=== PATIENT | female | born 1935 | race Asian ===

== ENCOUNTER 2016-12-27 06:50 | Inpatient (IN) | payer MEDICARE, MEDICAID ==
[~2016-12-27] VITALS: Ht 160 cm; Wt 62.1 kg
[2016-12-27] VITALS (63 sets, daily range): BP systolic 58–156; BP diastolic 25–111
[~2016-12-27 06:50] MED LIST: ACET-868 PO; ACYC800T PO; ALPR-322 PO; ATEN25TA PO; ESTR1.25 PO; GABA-534 PO; HYDR-3326 PO; MAG30ORA PO; MAGN400O6 PO; MELA3TAB PO; MUPI22OI7 TP; PANT40TA4 PO; PRED50TA PO; RIVA10TA PO; SIMV20TA6 PO; TRAZ-144 PO
[2016-12-27] MEDS ORDERED: EPINEPHRINE (1:10,000) SYRINGE 1 MG/10 ML DISP.SYRIN IVP ONE (07:10)
[2016-12-27] MEDS ORDERED: CALCIUM CHLORIDE 1,000 MG/10 ML DISP.SYRIN IV ONE (07:10)
[2016-12-27] MEDS ORDERED: DEXTROSE 50%-WATER 50 ML DISP.SYRIN IV ONE (07:10)
[2016-12-27] MEDS ORDERED: SODIUM BICARBONATE SYR 50 MEQ/50 ML DISP.SYRIN IV ONE ×2 (07:10→15:00)
[2016-12-27] MEDS ORDERED: AMIO200T2 PO (07:43)
[2016-12-27] MEDS ORDERED: ROPI0.5T PO (07:43)
[2016-12-27] MEDS ORDERED: DULO60CA45 PO (07:43)
[2016-12-27] MEDS ORDERED: FURO20TA4 PO (07:43)
[2016-12-27] MEDS ORDERED: CHOL100044 PO (07:43)
[2016-12-27] MEDS ORDERED: TRIA1CAP6 PO (07:43)
[2016-12-27 07:47] LABS: BASOPHILS # (AUTO) 0.1 /CMM (0.0-0.2); BASOPHILS % (AUTO) 0.3 % (0.0-2.0); DIFF TOTAL % 100 %; HEMATOCRIT 32 % (33-45); HEMOGLOBIN 9.9 g/dL (11.5-14.8); LYMPHOCYTES % (AUTO) 3.1 % (20.0-44.0); MEAN CORPUSCULAR HEMOGLOBIN 30 PG (26.0-33.0); MEAN CORPUSCULAR HGB CONC 31 g/dl (31.0-36.0); MEAN CORPUSCULAR VOLUME 95 fL (82-100); MONOCYTES # (AUTO) 0.6 /CMM (0.1-1.30); MONOCYTES % (AUTO) 1.8 % (2.0-12.0); NEUTROPHILS # (AUTO) 30.1 /CMM (1.8-8.9); NEUTROPHILS % (AUTO) 94.8 % (43.0-81.0); PLATELET COUNT (AUTO) 100 /CMM (150-450); RED BLOOD CELL COUNT(AUTO) 3.32 MIL/uL (4.0-5.2)
[2016-12-27 07:51] LABS: WHITE BLOOD COUNT (AUTO) 31.8 K/uL (4.3-11.0)
[2016-12-27] MEDS ORDERED: IV NS 0.9% 1,000 ML IV ONE ×2 (08:00→08:30)
[2016-12-27] MEDS ORDERED: IV NS 0.9% 1,000 ML BAG IV ONE (08:00)
[2016-12-27 08:01] LABS: ALBUMIN 1.7 g/dL (3.4-5.0); BILIRUBIN,DIRECT 0.8 mg/dL (0.0-0.2); BILIRUBIN,TOTAL 1.3 mg/dL (0.2-1.0); CALCIUM, SERUM 9.1 mg/dL (8.5-10.1); CREATININE 3.2 mg/dL (0.6-1.3); INDIRECT BILIRUBIN 0.5 mg/dL (0.0-1.1); POTASSIUM 5.9 mmol/L (3.5-5.1); TOTAL PROTEIN, SERUM 4.3 g/dL (6.4-8.2)
[2016-12-27 08:03] LABS: TROPONIN I 0.281 ng/mL (0.00-0.056)
[2016-12-27 08:08] LABS: INR 3.18 (0.87-1.13); PROTHROMBIN TIME 34.8 SECS (9.5-12.7)
[2016-12-27] MEDS ORDERED: IV NS 0.9% 1,000 ML ONE (08:16)
[2016-12-27] MEDS ORDERED: IV SET PRIMARY PUMP SET 1 EA INFUS.SET MC ONE ×2 (08:16→10:20)
[2016-12-27 08:22] LABS: KETONES,URINE NEGATIVE (NEGATIVE); LEUKOCYTE ESTERASE ,URINE NEGATIVE (NEGATIVE); PH,URINE 5.5 (5.0-8.0)
[2016-12-27 08:24] LABS: ABG BASE EXCESS -23.8 mmol/L; ABG HCO3 6.9 mmol/L; ABG PCO2 31.4 mmHg (35.0-45.0); ABG PH 6.957 (7.350-7.450); ABG PO2 153.3 mmHg (75.0-100.0); ABG TOTAL HEMOGLOBIN 9.9 G/dL (12.0-16.0); ALLEN TEST Pass; AaDO2 528.3 mmHg
[2016-12-27 08:28] LABS: ADD UA MICROSCOPIC YES
[2016-12-27] MEDS ORDERED: NOREPINEPHRINE 8 MG in IV D5W 500 ML IV PRN (08:30)
[2016-12-27] MEDS ORDERED: DEXTROSE 50%-WATER 50 ML DISP.SYRIN ONE (09:25)
[2016-12-27] MEDS ORDERED: DEXTROSE 50%-WATER 50 ML DISP.SYRIN IVP ONE (09:30)
[2016-12-27] MEDS ORDERED: IV D5/ 0.9% NACL 1,000 ML IV ONE (09:30)
[2016-12-27] MEDS: NOREPINEPHRINE 8 MG in IV D5W 500 ML IV PRN ×2 (09:35→14:05)
[2016-12-27 09:42] LABS: BAND % (MANUAL) 9 % (0.0-5.0); LYMPHOCYTES % (MANUAL) 3 % (16-48)
[2016-12-27 09:43] LABS: ANISOCYTOSIS 1+; HYPOCHROMASIA 1+; PLATELET ESTIMATE DECREASED
[2016-12-27] MEDS ORDERED: Sodium Bicarbonate 150 MEQ in IV D5W 1,000 ML IV PRN (10:00)
[2016-12-27 10:11] LABS: WBC,URINE NONE SEEN /HPF (0-3)
[2016-12-27 10:12] LABS: ADD URINE CULTURE NO
[2016-12-27 10:22] LABS: CREATININE, URINE 111.4 MG/DL (30.0-125.0); URINE TOTAL PROTEIN 78.3 mg/dL (0-11.9)
[2016-12-27] MEDS: ALBUMIN 25% 25 GM in PREMIX 1 EA IV SCH ×3 (10:27→21:52)
[2016-12-27] MEDS: HYDROCORTISONE SOD SUCCINATE 100 MG/2 ML VIAL IV SCH ×3 (10:32→17:40)
[2016-12-27 10:42] LABS: CREATINE KINASE MB 9.1 ng/mL (0-3.6)
[2016-12-27 10:48] LABS: ABG BASE EXCESS -23.3 mmol/L; ABG HCO3 7.3 mmol/L; ABG PCO2 32.4 mmHg (35.0-45.0); ABG PH 6.969 (7.350-7.450); ABG PO2 99.4 mmHg (75.0-100.0); ABG TOTAL HEMOGLOBIN 10.8 G/dL (12.0-16.0); ALLEN TEST Pass; AaDO2 400.9 mmHg; O2Hb 90.7 % (94.0-97.0)
[2016-12-27] MEDS ORDERED: ALBUMIN 25% 25 GM in PREMIX 1 EA IV SCH (11:00)
[2016-12-27] MEDS ORDERED: Z GUARD REMEDY 2 OZ OINT TP PRN (12:00)
[2016-12-27] MEDS ORDERED: MAG HYDROX/AL HYDROX/SIMETH 30 ML UDC PO PRN (12:00)
[2016-12-27] MEDS ORDERED: ACETAMINOPHEN 325 MG TABLET PO PRN (12:00)
[2016-12-27] MEDS ORDERED: ZOLPIDEM TARTRATE 5 MG TABLET PO PRN (12:00)
[2016-12-27] MEDS ORDERED: ONDANSETRON HCL/PF 4 MG/2 ML VIAL IVP PRN (12:00)
[2016-12-27] MEDS ORDERED: RIVAROXABAN 10 MG TABLET PO SCH ×2 (12:00→17:00)
[2016-12-27] MEDS ORDERED: MAGNESIUM HYDROXIDE 30 ML UDC PO PRN (12:00)
[2016-12-27] MEDS ORDERED: HYDROCODONE/APAP 5/325MG 1 EACH TABLET PO PRN (12:00)
[2016-12-27 12:06] LABS: ANION GAP 28 (5-14); CALCIUM, SERUM 7.5 mg/dL (8.5-10.1); CHLORIDE 109 mmol/L (98-107); CREATININE 3.3 mg/dL (0.6-1.3); GLUCOSE 182 mg/dL (74-106); POTASSIUM 5.9 mmol/L (3.5-5.1); SODIUM SERUM 141 mmol/L (136-145); UREA NITROGEN, BLOOD 73 mg/dL (7-18)
[2016-12-27] MEDS ORDERED: PANTOPRAZOLE 40 MG VIAL IV SCH (12:08)
[2016-12-27 12:15] LABS: CARBON DIOXIDE 10 mmol/L (21-32)
[2016-12-27 12:19] LABS: LACTIC ACID 14.2 mmol/L (0.4-2.0)
[2016-12-27 12:52] LABS: *LACTIC ACID REFLEX FLAG YES
[2016-12-27] MEDS ORDERED: SECONDARY IV SET 1 EA INFUS.SET MC ONE (12:53)
[2016-12-27] MEDS ORDERED: PIPERACILLIN /TAZOBACTAM 2.25 G in IV D5W 50 ML IV SCH (13:00)
[2016-12-27] MEDS ORDERED: PIPERACILLIN /TAZOBACTAM 3.375 G in IV D5W 50 ML IV SCH (13:00)
[2016-12-27] MEDS: ropiniROLE 0.5 MG TABLET PO SCH ×2 (13:00→17:00)
[2016-12-27] MEDS: PIPERACILLIN /TAZOBACTAM 2.25 G in IV D5W 50 ML IV SCH ×2 (13:04→17:41)
[2016-12-27] MEDS ORDERED: BLOOD IV SET 1 EA INFUS.SET MC ONE (14:18)
[2016-12-27] MEDS ORDERED: IV NS 0.9% 250 ML IV ONE (14:18)
[2016-12-27 14:35] LABS: ABG BASE EXCESS -24.2 mmol/L; ABG PCO2 26.4 mmHg (35.0-45.0); ABG PH 6.975 (7.350-7.450); ABG PO2 104.5 mmHg (75.0-100.0); ALLEN TEST Pass; AaDO2 402.2 mmHg; O2Hb 92.4 % (94.0-97.0)
[2016-12-27] MEDS: Sodium Bicarbonate 150 MEQ in IV D5W 1,000 ML IV PRN (17:40)
[2016-12-27] MEDS: NOREPINEPHRINE 16 MG in IV D5W 500 ML IV PRN (18:39)
[2016-12-27] MEDS ORDERED: SIMVASTATIN 20 MG TABLET PO SCH (22:00)
[2016-12-28] VITALS (32 sets, daily range): BP systolic 85–101; BP diastolic 40–68
[2016-12-28] MEDS: PIPERACILLIN /TAZOBACTAM 2.25 G in IV D5W 50 ML IV SCH ×2 (00:09→05:03)
[2016-12-28] MEDS: NOREPINEPHRINE 16 MG in IV D5W 500 ML IV PRN (01:48)
[2016-12-28] MEDS: ALBUMIN 25% 25 GM in PREMIX 1 EA IV SCH (03:49)
[2016-12-28 04:31] LABS: DIFF TOTAL % 100 %; HEMATOCRIT 24 % (33-45); HEMOGLOBIN 7.6 g/dL (11.5-14.8); LYMPHOCYTES # (AUTO) 0.5 /CMM (0.8-4.8); LYMPHOCYTES % (AUTO) 1.7 % (20.0-44.0); MEAN CORPUSCULAR HEMOGLOBIN 30 PG (26.0-33.0); MEAN CORPUSCULAR HGB CONC 32 g/dl (31.0-36.0); MEAN CORPUSCULAR VOLUME 94 fL (82-100); MONOCYTES # (AUTO) 0.8 /CMM (0.1-1.30); MONOCYTES % (AUTO) 2.6 % (2.0-12.0); NEUTROPHILS # (AUTO) 28.9 /CMM (1.8-8.9); NEUTROPHILS % (AUTO) 95.7 % (43.0-81.0); PLATELET COUNT (AUTO) 60 /CMM (150-450); RED BLOOD CELL COUNT(AUTO) 2.53 MIL/uL (4.0-5.2)
[2016-12-28 04:36] LABS: WHITE BLOOD COUNT (AUTO) 30.2 K/uL (4.3-11.0)
[2016-12-28 04:48] LABS: ANION GAP 28 (5-14); CALCIUM, SERUM 7.1 mg/dL (8.5-10.1); CARBON DIOXIDE 17 mmol/L (21-32); CHLORIDE 99 mmol/L (98-107); CREATININE 3.9 mg/dL (0.6-1.3); GLUCOSE 79 mg/dL (74-106); PHOSPHORUS 5.9 mg/dL (2.5-4.9); POTASSIUM 5.7 mmol/L (3.5-5.1); SODIUM SERUM 138 mmol/L (136-145); UREA NITROGEN, BLOOD 76 mg/dL (7-18)
[2016-12-28 04:49] LABS: HDL CHOLESTEROL 29 mg/dL (40-60); LDL 16 mg/dL (0-99); TRIGLYCERIDES 92 mg/dL (30-150)
[2016-12-28 04:50] LABS: CHOLESTEROL < 50 mg/dL (<200)
[2016-12-28 05:17] LABS: BAND % (MANUAL) 45 % (0.0-5.0); LYMPHOCYTES % (MANUAL) 2 % (16-48); METAMYELOCYTES % 10 % (0-0); MYELOCYTES % 3 % (0-0); PROMYELOCYTES % 1 % (0-0)
[2016-12-28 05:19] LABS: HYPOCHROMASIA 2+; PLATELET ESTIMATE GIANT PLATELET SEEN
[2016-12-28 05:20] LABS: ANISOCYTOSIS 1+
[2016-12-28] MEDS: Sodium Bicarbonate 150 MEQ in IV D5W 1,000 ML IV PRN (05:45)
[2016-12-28] MEDS ORDERED: IV SET PRIMARY PUMP SET 1 EA INFUS.SET MC ONE ×3 (06:17→07:13)
[2016-12-28] MEDS ORDERED: DOPamine 400MG/D5W 250ML RTU 250 ML IV ONE (06:24)
[2016-12-28] MEDS ORDERED: DOPamine 400 MG/D5W 250 ML RTU PIGGYBACK IV ONE (06:30)
[2016-12-28] MEDS ORDERED: DEXTROSE 50%-WATER 50 ML DISP.SYRIN ONE (06:54)
[2016-12-28] MEDS ORDERED: DOPamine 400 MG/D5W 250 ML RTU PIGGYBACK IV PRN (07:00)
[2016-12-28 07:28] LABS: KETONES,URINE NEGATIVE (NEGATIVE); LEUKOCYTE ESTERASE ,URINE NEGATIVE (NEGATIVE)
[2016-12-28 07:29] LABS: ADD UA MICROSCOPIC YES
[2016-12-28] MEDS ORDERED: EPINEPHRINE (1:1000) 2 MG in IV D5W 250 ML IV PRN (07:30)
[2016-12-28 08:27] LABS: URINE TOTAL PROTEIN 609.6 mg/dL (0-11.9)
[2016-12-28] MEDS ORDERED: DULOXETINE HCL 30 MG CAPSULE.DR PO SCH (09:00)
[2016-12-28] MEDS ORDERED: AMIODARONE HCL 200 MG TABLET PO SCH (09:00)
[2016-12-28] MEDS ORDERED: ATENOLOL 25 MG TABLET PO SCH (09:00)
[2016-12-28] MEDS ORDERED: TRIAMTERENE/HYDROCHLOROTHIAZID (37.5/25MG) 1 UDCAP PO SCH (09:00)
[2016-12-28 09:21] LABS: ADD URINE CULTURE NO; RBC,URINE TOO NUMEROUS TO COUN /HPF (0-2); WBC,URINE 0-2 /HPF (0-3)
[2016-12-28] MEDS ORDERED: EPINEPHRINE (1:10,000) SYRINGE 1 MG/10 ML DISP.SYRIN IVP ONE ×2 (10:40)
[2016-12-28] MEDS ORDERED: CALCIUM CHLORIDE 1,000 MG/10 ML DISP.SYRIN IV ONE ×2 (10:40)
[2016-12-28] MEDS ORDERED: Sodium Bicarbonate 50 MEQ/50 ML VIAL IV ONE (10:40)
[2016-12-28] MEDS ORDERED: FEE EMEERGENCY 1 MIN EA MC ONE ×2 (10:40→14:30)
[2016-12-28] MEDS ORDERED: SODIUM BICARBONATE SYR 50 MEQ/50 ML DISP.SYRIN IV ONE (10:40)
[2016-12-28] MEDS ORDERED: DEXTROSE 50%-WATER 50 ML VIAL IV ONE (10:41)
== END 2016-12-28 10:41 | disposition expired | DRG 208 ==
LOC: ER 06:53 → ICU 08:19
PROVIDERS: ADMIT Family Medicine; ATTEND Family Medicine
PROC: 5A1935Z Respiratory Ventilation, Less than 24 Consecutive Hours (ICD-10-PCS; principal; 2016-12-27)
PROC: 02HV33Z Insertion of Infusion Device into Superior Vena Cava, Percutaneous Approach (ICD-10-PCS; 2016-12-27)
PROC: B548ZZA Ultrasonography of Superior Vena Cava, Guidance (ICD-10-PCS; 2016-12-27)
PROC: 0BH17EZ Insertion of Endotracheal Airway into Trachea, Via Natural or Artificial Opening (ICD-10-PCS; 2016-12-27)
PROC: 30233K1 Transfusion of Nonautologous Frozen Plasma into Peripheral Vein, Percutaneous Approach (ICD-10-PCS; 2016-12-27)
PROC: 5A12012 Performance of Cardiac Output, Single, Manual (ICD-10-PCS; 2016-12-28)
DX: J96.00 Acute respiratory failure, unspecified whether with hypoxia or hypercapnia (principal); N17.0 Acute kidney failure with tubular necrosis; I21.4 Non-ST elevation (NSTEMI) myocardial infarction; K72.00 Acute and subacute hepatic failure without coma; E87.2 Acidosis; D68.9 Coagulation defect, unspecified; E27.40 Unspecified adrenocortical insufficiency; Z99.11 Dependence on respirator [ventilator] status; I50.32 Chronic diastolic (congestive) heart failure; E87.5 Hyperkalemia; E16.2 Hypoglycemia, unspecified; E78.5 Hyperlipidemia, unspecified; I25.10 Atherosclerotic heart disease of native coronary artery without angina pectoris; G20 Parkinson's disease; F03.90 Unspecified dementia, unspecified severity, without behavioral disturbance, psychotic disturbance, mood disturbance, and anxiety; I48.91 Unspecified atrial fibrillation; K21.9 Gastro-esophageal reflux disease without esophagitis; D64.9 Anemia, unspecified; F32.9 Major depressive disorder, single episode, unspecified; F41.9 Anxiety disorder, unspecified; Z86.711 Personal history of pulmonary embolism; I27.2 Other secondary pulmonary hypertension; I11.0 Hypertensive heart disease with heart failure
CPT/HCPCS: 31720; 36415; 36600; 71010-TC; 80048-TC; 80061-TC; 80076-TC; 81000-TC; 82550-TC; 82553-TC; 82570-TC; 82962-TC; 83605-TC; 83735-TC; 84100-TC; 84155-TC; 84300-TC; 84484-TC; 85025-TC; 85730-TC; 86850-TC; 87081-TC; 92950-TC; 93307-TC; 94002-TC; 94003-TC; 94760-TC; A4216; A4606; A6403; C9113; J0171; J1265; J1720; J2543; J3490; J7030; J7050; J7060; J7070; P9017-BL; P9047; Z7610